=== PATIENT | male | born 1995 | race African-American/Black ===

== ENCOUNTER 2021-03-06 03:25 | Emergency (ER) | payer OTHER ==
[~2021-03-06] VITALS: Ht 170.2 cm; Wt 63.6 kg
--- NOTE | 2021-03-06 03:42 | PHYS DOC ---
Past Medical History Past Medical History: No Pertinent History Past Surgical History: No Surgical History Additional Information: incarcerated General Adult EDM: Chief Complaint: Scalp laceration HPI: HPI: 25-year-old male was in his long-term cell and apparently set up on a toilet to clean a wall when he slipped and fell, hit his head on a wall, denies loss of consciousness but has a laceration on the occipital scalp, denies any neck pain, no blurred vision or vision loss, no numbness or weakness/tingling of face, arms or legs. No other pain complaints, cannot recall when his last tetanus vaccine was given Review of Systems: Review of Systems: Constitutional: Denies fever or chills. [] Eyes: Denies change in visual acuity. [] HENT: Denies nasal congestion or sore throat. [] Respiratory: Denies cough or shortness of breath. [] Cardiovascular: Denies chest pain or edema. [] GI: Denies abdominal pain, nausea, vomiting, bloody stools or diarrhea. [] : Denies dysuria. [] Musculoskeletal: Denies back pain or joint pain. [] Integument: Denies rash. [] Neurologic: Denies headache, focal weakness or sensory changes. [] Endocrine: Denies polyuria or polydipsia. [] Lymphatic: Denies swollen glands. [] Psychiatric: Denies depression or anxiety. [] Heart Score: C/O Chest Pain: No Risk Factors: Risk Factors: DM, Current or recent (<one month) smoker, HTN, HLP, family history of CAD, obesity. Risk Scores: Score 0 - 3: 2.5% MACE over next 6 weeks - Discharge Home Score 4 - 6: 20.3% MACE over next 6 weeks - Admit for Clinical Observation Score 7 - 10: 72.7% MACE over next 6 weeks - Early Invasive Strategies Allergies: Allergies: Allergies Coded Allergies Type Severity Reaction Last Updated Verified No Known Drug Allergies 03/06/21 No Physical Exam: PE: Constitutional: Well developed, well nourished, no acute distress, non-toxic appearance. [], There is a 2 cm linear scalp laceration of the occipital scalp, no foreign bodies visible, no active bleeding HENT: Normocephalic, atraumatic, bilateral external ears normal, oropharynx moist, no oral exudates, nose normal. [] Eyes: PERRLA, EOMI, conjunctiva normal, no discharge. [] Neck: Normal range of motion, no tenderness, supple, no stridor. [], No midline cervical spinal tenderness Cardiovascular:Heart rate regular rhythm, no murmur [] Lungs & Thorax: Bilateral breath sounds clear to auscultation [] Abdomen: Bowel sounds normal, soft, no tenderness, no masses, no pulsatile masses. [] Skin: Warm, dry, no erythema, no rash. [] Back: No tenderness, no CVA tenderness. [] Extremities: No tenderness, no cyanosis, no clubbing, ROM intact, no edema. [] Neurologic: Alert and oriented X 3, normal motor function, normal sensory function, no focal deficits noted. [] Psychologic: Affect normal, judgement normal, mood normal. [] EKG: EKG: [] Radiology/Procedures: Radiology/Procedures: [] Course & Med Decision Making: Course & Med Decision Making Pertinent Labs and Imaging studies reviewed. (See chart for details) [] Patient presents to the ER with scalp laceration and head injury although there is no signs of any clinically significant head or C-spine trauma, negative according Nexus criteria and low risk according to [place] head CT rules, no clear indication for imaging but will update the tetanus, will anesthetize wound, washout and then closed with gil Procedure note: Indication is scalp laceration, the procedure was explained to the patient and verbal consent was achieved, wound anesthetized with 1% lidocaine with epinephrine and once this was done his wound was washed out and irrigated copiously with sterile saline and explored for foreign bodies, none were seen, prepped and draped in usual sterile fashion with iodine, scrubbed out, closed with several skin gil, 12 in total, no complications Patient was seen in the ED for scalp laceration that was successfully washed out and closed in the emergency department, there is no apparent evidence of any emergency medical pathology at this time, patient was advised follow-up with their primary care provider /physician in the next 24-48 hours and to return to the ED before then if any new or worsening / concerning symptoms had developed. All questions and concerns were addressed at time of disposition Dragon Disclaimer: Dragon Disclaimer: This electronic medical record was generated, in whole or in part, using a voice recognition dictation system. Departure Departure Impression: Primary Impression: Occipital scalp laceration Qualified Codes: S01.01XA - Laceration without foreign body of scalp, initial encounter Disposition: HOME / SELF CARE / HOMELESS Condition: RELEASED IN CUSTODY Patient Instructions: Head Injury, Adult, Staple Care and Removal, Staple Wound Closure, [id number] Additional Instructions: You have 12 gil in the back of your scalp, does need to get removed in 10 days, I do recommend that you see the longterm doctor in the next 48 hours for reevaluation and wound check, keep the wound clean and dry, you can shower starting tomorrow, return to the emergency room before follow-up with the longterm doctor if any new or worsening/concerning symptoms develop Scripts Ibuprofen (MOTRIN IB) 200 Mg Tablet 600 MG PO Q6H PRN for PAIN, #20 TAB Prov: PETE REDD MD 03/06/21 Cephalexin (KEFLEX) 250 Mg Capsule 1 CAP PO QID, #28 CAP Prov: PETE REDD MD 03/06/21 PETE REDD MD Mar 06, 2021 03:42
[2021-03-06] MEDS ORDERED: LIDOCAINE 2%/EPI 1:100,000 20 ML VIAL. INJ ONE (04:00)
[2021-03-06] MEDS ORDERED: CEPH250C PO (04:17)
[2021-03-06] MEDS ORDERED: IBUP200T44 PO (04:17)
[2021-03-06 04:30] VITALS: BP 117/63
--- NOTE | 2021-03-06 04:38 | RAD ---
PQRS Compliance Statement: One or more of the following individualized dose reduction techniques were utilized for this examinat ion: 1. Automated exposure control 2. Adjustment of the mA and/or kV according to patient size 3. Use of iterative reconstruction technique CT HEAD WITHOUT CONTRAST History: Reason: scalp lac, head injury / Spl. Instructions: / History: Comparison: None. Procedure: Axial images are obtained of the head from the skull base through the vertex without IV co ntrast. Findings: The ventricles and sulci are normal for the patient's age. No mass-effect, midline shift, hemorrhage, extra-axial fluid collection, or obvious acute infarction is identified. Basilar cisterns are patent. Bone windows demonstrate no acute calvarial abnormality. Mild left posterior convexity scalp hematoma . Small amount of subcutaneous air. The visualized paranasal sinuses are clear. Mastoid air cells are well aerated. IMPRESSION: No acute intracranial abnormality. Electronically signed by: Carlo Jones MD (03/06/2021 4:36 AM) [facility]
== END 2021-03-06 04:35 | disposition home or self-care (01) ==
LOC: EEVIPCON 03:25 → ER 03:25
DX: S01.01XA Laceration without foreign body of scalp, initial encounter (principal); W01.198A Fall on same level from slipping, tripping and stumbling with subsequent striking against other object, initial encounter; Y93.89 Activity, other specified; Y92.89 Other specified places as the place of occurrence of the external cause; Y99.8 Other external cause status
CPT/HCPCS: 12001; 70450; 99284; J3490